=== PATIENT | male | born 1970 | race American Indian/Alaskan Native ===

== ENCOUNTER 2017-12-23 08:56 | Emergency (ER) | payer BC ==
[2017-12-23 09:18] VITALS: BP 128/89
--- NOTE | 2017-12-23 09:47 | Emergency Department Report ---
Upper Extremity - [facility] Chief Complaint: Extremity Injury, Upper Stated Complaint: LFT ARM PAIN Time Seen by Provider: 12/23/17 09:47 Upper Extremity: Left Shoulder (pain that radiates down to his left arm and forearm), Left Arm, Left Elbow, Left Forearm Occurred When: >5 Days (2 weeks) Mechanism: Unsure Severity: severe (9/10 and achy) Symptoms: Yes Pain with Movement (left shoulder), Yes Limited Range of Movement (due to pain), No Deformity, No Numbness, No Weakness, No Swelling, No Bruising/ Ecchymosis, No Laceration or Abrasion Other History: This is a 47-year-old male here reports that he is having left shoulder pain for weeks that is radiating down his left arm. Denies any history of any medical problems except for gout. He states that he feels like he has a click in his neck. Pain is worse with movement. Denies any nausea or vomiting or fever or chills. Denies any neck pain or stiffness or headache. Pain starts in his left shoulder and radiating down to his fingers. Denies any injury but reports lifting heavy objects at time. Denies chest pain or shortness of breath. Denies any headache. Pain is 9 out of 10 achy and throbbing, intermittent and [id number] pain medication is not helping. Worse with movement and better with rest ED Review of Systems ROS: Stated complaint: LFT ARM PAIN Other details as noted in HPI Constitutional: denies: chills, fever Eyes: denies: eye pain, eye discharge ENT: denies: ear pain, throat pain, congestion Respiratory: denies: cough, shortness of breath, SOB with exertion, SOB at rest , stridor, wheezing Cardiovascular: denies: chest pain, palpitations, dyspnea on exertion, edema, syncope, paroxysmal nocturnal dyspnea Gastrointestinal: denies: abdominal pain, nausea, vomiting, diarrhea Musculoskeletal: arthralgia. denies: back pain, joint swelling Skin: denies: rash, lesions Neurological: numbness, paresthesias. denies: headache, weakness, abnormal gait , vertigo ED Past Medical Hx - Past Medical History Previous Medical History?: Yes Additional medical history: Gout - Surgical History Past Surgical History?: No - Family History Family history: hypertension - Social History Smoking Status: Never Smoker Substance Use Type: Alcohol, Marijuana - Medications Home Medications: Home Medications Medication Instructions Recorded Confirmed Last Taken Type Azithromycin [Zithromax TAB] 500 mg PO QDAY #3 tablet 03/07/15 Unknown Rx HYDROcodone/APAP 5-325 [[place] 1 each PO Q6HR PRN #20 tablet 03/07/15 Unknown Rx 5/325] traMADol [Ultram 50 MG tab] 50 mg PO Q6HR PRN #20 tablet 12/23/17 Unknown Rx Upper Extremity Exam - Exam General: Vital signs noted. No distress. Alert and acting appropriately. This is a 47-year-old male here for 2 these have been left shoulder pain radiated to his arm and forearm. This started a couple weeks ago. He is well- nourished well-developed and in no acute distress Head and Torso: No HEENT Abnormality, No Neck Tenderness, No Chest/Lungs Abnormality, No Abdominal Tenderness, No Back Tenderness Shoulder Exam: Yes Normal Range of Motion in Shoulder (patient with full range of motion to the shoulder but he reports pain 9 out of 10 to left shoulder with active and passive range of motion), Yes AC Joint Tenderness (left), No Shoulder Tenderness, No Clavicle Tenderness, No Shoulder Deformity Arm Exam: No Arm/Humerus Tenderness, No Arm Deformity Elbow: Yes Normal Range of Motion in Elbow, No Elbow Tenderness, No Elbow Deformity Forearm: No Forearm Tenderness, No Forearm Deformity, No Pain with Pronation, No Pain with Supination Wrist: Yes Normal ROM in Wrist, No Wrist Tenderness, No Wrist Deformity, No Snuffbox Tenderness, No Pain with Axial Thumb Compression Hand: Yes Normal ROM in Digit(s), No Hand Tenderness, No Hand Deformity, No Digit Tenderness, No Digit(s) Deformity, No Tendon Dysfunction CMS Exam: Yes Normal Distal Pulses, Yes Normal Capillary Refill, Yes Normal Distal Sensation, No Broken Skin ED Course Vital Signs 12/23/17 09:16 Temperature 98.7 F Pulse Rate 87 Respiratory 18 Rate Blood Pressure 128/89 O2 Sat by Pulse 100 Oximetry - Reevaluation(s) Reevaluation #1: 12/23/17 11:10 Patient received Decadron 10 mg IM, Toradol 60 mg IM, thiamine, folic acid and vitamin B6 in emergency room to help with pain. He says a throbbing pain ED Medical Decision Making - Radiology Data Radiology results: report reviewed X-ray of left shoulder dictated radiologist report reviewed by myself. Please see report below. Patient: NORM GARCIA MR#: [id number] : 1970 Acct:[id number] Age/Sex: 47 / M ADM Date: 12/23/17 Loc: ED Attending Dr: Ordering Physician: ELAN WALLS Date of Service: 12/23/17 Procedure(s): XR shoulder 2+V LT Accession Number(s): [id number] cc: ELAN WALLS Fluoro Time In Minutes: LEFT SHOULDER: History: Left shoulder pain. Routine views demonstrate normal bony and soft tissue structures with normal joint alignment of the shoulder. IMPRESSION: Normal study. Transcribed By: TTR Dictated By: JOSEFINA PEOPLES JR, MD Electronically Authenticated By: JOSEFINA PEOPLES JR, MD Signed Date/Time: 12/23/17 1037 DD/ 1037 TD/TT: 12/23/17 1037 - Medical Decision Making Patient and here report left shoulder pain does radiate indents his arm. He is here to be evaluated because it has been going on for 2 weeks Patient was seen and examined by myself and physical exam is normal except he has pain with movement and describes pain as numbness and tingling and achy with some throbbing. He received Toradol 60 mg exam and Decadron 10 mg IM in emergency room and said his throbbing pain has eased up but he still having a little numbness and tingling in his forearm. Patient was also given thiamine, vitamin B6 and folic acid in emergency room to help with pain. He had x-ray of his left shoulder which shows no acute findings. His visit dated by radiologist and report reviewed by myself. I discussed this with the patient and I told him that he will need to follow-up with orthopedic doctor for possible MRI. He voiced understanding and discharged home in stable condition, vital signs are stable, pain is better and discharged home with prescription for Ultram Critical care attestation.: If time is entered above; I have spent that time in minutes in the direct care of this critically ill patient, excluding procedure time. ED Disposition Clinical Impression: Left shoulder pain Qualifiers: Chronicity: acute Qualified Code(s): M25.512 - Pain in left shoulder Disposition: DC-01 TO HOME OR SELFCARE Is pt being admited?: No Does the pt Need Aspirin: No Condition: Stable Instructions: Musculoskeletal Pain (ED) Additional Instructions: Please call orthopedic doctor today to schedule an appointment for follow-up visit for left shoulder pain Take medication as prescribed. Do not drive or operate heavy machinery while taking this medicine as it causes drowsiness Referrals: PRIMARY CAREMD [Primary Care Provider] - 2-3 Days KAREN SAMANO MD [Staff Physician] - 2-3 Days Forms: Work/School Release Form(ED)
[2017-12-23] MEDS ORDERED: VITAMIN B-1 PO ONE (09:53)
[2017-12-23] MEDS ORDERED: DECADRON IM ONE (09:53)
[2017-12-23] MEDS ORDERED: TORADOL IM ONE (09:53)
[2017-12-23] MEDS ORDERED: VITAMIN B-6 PO SCH (10:00)
[2017-12-23] MEDS ORDERED: FOLVITE PO SCH (10:00)
--- NOTE | 2017-12-23 10:37 | XRay Report ---
LEFT SHOULDER: History: Left shoulder pain. Routine views demonstrate normal bony and soft tissue structures with normal joint alignment of the shoulder. IMPRESSION: Normal study.
== END 2017-12-23 11:22 | disposition home or self-care (01) ==
LOC: ED 08:56
DX: M25.512 Pain in left shoulder (principal); M10.9 Gout, unspecified; F12.10 Cannabis abuse, uncomplicated; Z79.899 Other long term (current) drug therapy
CPT/HCPCS: 73030; 96372; 99283; J1100; J1885

== ENCOUNTER 2018-01-06 15:27 | Outpatient (CLI) | payer BC ==
--- NOTE | 2018-01-07 09:32 | Magnetic Resonance Report ---
MR CERVICAL SPINE WITHOUT CONTRAST HISTORY: Pain. TECHNIQUE: Axial T2 and T2 gradient. Sagittal T1, T2 and STIR. COMPARISON: None. FINDINGS: The cervical spinal cord is normal size and signal intensity throughout. No abnormal intramedullary signal is detected. Normal height and alignment of the cervical vertebral bodies. Normal bone marrow signal. The disc spaces are normal height but demonstrate diffuse desiccation. The facet joints are in appropriate relationship. Minimal facet arthropathy is identified throughout the cervical region. No hypertrophic changes. The paraspinal soft tissues are within normal limits. C2-3: No abnormality. C3-4: Moderate left uncovertebral spurring results in 50% left neural foraminal stenosis. C4-5: Mild right uncovertebral spurring results in 25% right neural foraminal stenosis. C5-6: No abnormality. C6-7: Mild bilateral uncovertebral spurring results in 25-50% bilateral neural foraminal stenosis. C7-T1: No abnormality. IMPRESSION: Mild multilevel cervical spondylosis as described above. No evidence for central canal stenosis, significant bulging disc or high-grade neural foraminal stenosis. Please see above.
--- NOTE | 2018-01-07 09:38 | Magnetic Resonance Report ---
MRI UPPER EXTREMITY JOINT LEFT WITHOUT CONTRAST HISTORY: Left shoulder pain. TECHNIQUE: Multisequence, multiplanar MRI without contrast was performed through the left shoulder. COMPARISON: Left shoulder films dated 12/23/17. FINDINGS: A focal full thickness defect is identified in the distal supraspinatus tendon within 1 cm of its insertion site on the proximal humerus. This is best demonstrated on coronal proton density fat sat image 10. This defect measures less than 5 mm in greatest dimension. The subscapularis, infraspinatus and teres minor tendons are within normal limits. The biceps tendon and its anchor upon the superior labrum appears intact. No gross labral defect although arthrogram was not performed. Mild to moderate osteoarthritic changes are identified at the a.c. joint. Minimal osteoarthritic changes at the glenohumeral joint. There is moderate fluid in the subacromial and subdeltoid bursa. No significant joint effusion. The bone marrow signal throughout the visualized left shoulder is within normal limits. No evidence for fracture or bone lesion. IMPRESSION: Focal full thickness tear in the distal supraspinatus tendon as described. Moderate fluid in the subacromial and subdeltoid bursa. Osteoarthritis.
== END 2018-01-06 15:28 | disposition home or self-care (01) ==
LOC: MRI 15:27
PROVIDERS: ATTEND Orthopaedic Surgery
DX: S46.812A Strain of other muscles, fascia and tendons at shoulder and upper arm level, left arm, initial encounter (principal); M19.012 Primary osteoarthritis, left shoulder; M47.892 Other spondylosis, cervical region; X58.XXXA Exposure to other specified factors, initial encounter; Y93.89 Activity, other specified; Y92.89 Other specified places as the place of occurrence of the external cause; Y99.8 Other external cause status
CPT/HCPCS: 72141